=== PATIENT | male | born 1985 | race Caucasian/White ===

== ENCOUNTER 2022-06-02 10:31 | Emergency (ER) | payer BC ==
[2022-06-02] MEDS ORDERED: Sodium Chloride 0.9% 2.5 ML Syringe FLUSH PRN (11:00)
[2022-06-02] MEDS ORDERED: Ondansetron 4 MG/2 ML SDV IVPUSH ONE (11:00)
[2022-06-02] MEDS ORDERED: Ketorolac 30 MG/ML SDV IVPUSH ONE (11:00)
[2022-06-02] MEDS ORDERED: Sodium Chloride 0.9% 10 ML Syringe FLUSH PRN (11:00)
[2022-06-02] MEDS ORDERED: Sodium Chloride 0.9% 1,000 ML IV ONE (11:00)
[2022-06-02 11:29] LABS: POTASSIUM,K 3.7 mmol/L (3.5-5.1)
[2022-06-02] MEDS ORDERED: Tamsulosin 0.4 MG Cap.ER PO ONE (12:20)
== END 2022-06-02 12:29 | disposition home or self-care (01) ==
LOC: MW.ED 10:31
DX: N20.0 Calculus of kidney (principal); Z79.899 Other long term (current) drug therapy
CPT/HCPCS: 36415; 74176; 80053; 81001; 83735; 85025; 96361; 96374; 96375; 99284; A9270; J1885; J2405; J3490; J7030